=== PATIENT | female | born 1985 | race Caucasian/White ===

== ENCOUNTER 2021-07-07 10:38 | Outpatient (CLI) | payer SELFPAY ==
[2021-07-07 10:50] VITALS: BP 130/73; PULSE 81; RESP 17; TEMP 36.7; O2SAT 98
[2021-07-07 11:07] VITALS: BMI 31.8
[2021-07-07 12:03] VITALS: BP 120/72; PULSE 75; RESP 16; O2SAT 97
[2021-07-07 12:55] VITALS: BP 111/65; PULSE 70; RESP 17; TEMP 36.5; O2SAT 99
== END 2021-07-07 10:39 | disposition home or self-care (01) ==
LOC: OPS 10:40
PROVIDERS: PCP General Practice; Visit Provider Nurse Practitioner Family
DX: U07.1 COVID-19 (principal)
CPT/HCPCS: 96365